=== PATIENT | male | born 1960 | race Caucasian/White ===

== ENCOUNTER → 2019-08-06 08:10 | Outpatient (CLI) | payer OTHER, SELFPAY ==
[2019-08-06 10:03] LABS: ALB/GLOB Ratio 1.1 RATIO (0.9-2.4); AST(SGOT) 17 U/L (15-37); Alanine Aminotransfer ALT/SGPT 24 U/L (16-61); Albumin, Serum 3.8 g/dL (3.2-5.0); Alkaline Phosphatase 52 U/L (45-117); Anion Gap 7 (5-15); BUN 20 mg/dL (7-18); BUN/Creat Ratio 19.6 RATIO (10-20); Calcium,Total 9.1 mg/dL (8.5-10.1); Chloride 104 mmol/L (98-107); Cholesterol 246 mg/dL (200); Creatinine, Serum 1.02 mg/dL (0.70-1.30); EST Glomerular Filtration Rate 79 mL/min (>60); Est Glom Filt Rate - Afr Amer 95 mL/min (>60); Globulin 3.6 g/dL (2.2-4.2); Glucose 87 mg/dL (74-106); High Density Lipoprotein 62 mg/dL; Potassium 4.4 mmol/L (3.5-5.1); Protein, Total 7.4 g/dL (6.4-8.2); Sodium Level 138 mmol/L (136-145); Triglycerides 144 mg/dL; Very Low Density Lipoprotein 29 mg/dL (5-40)
[2019-08-06 10:19] LABS: Microalbumin,Random Urine 14.8 mg/L (NO RANGE EST.); Microalbumin:Creatinine Ratio 11.1 mg/g CRE (<30 mg/g CRE)
== END ==
PROVIDERS: PCP Family Medicine; Visit Provider Family Medicine
DX: R03.0 Elevated blood-pressure reading, without diagnosis of hypertension (principal); E78.00 Pure hypercholesterolemia, unspecified
CPT/HCPCS: 36415; 80053; 80061; 82043; 82570

== ENCOUNTER → 2019-09-04 08:34 | Outpatient (CLI) | payer OTHER, SELFPAY ==
[2019-09-04 10:21] LABS: Cholesterol 165 mg/dL (200); High Density Lipoprotein 59 mg/dL; Triglycerides 115 mg/dL; Very Low Density Lipoprotein 23 mg/dL (5-40)
== END ==
PROVIDERS: PCP Family Medicine; Referring Provider Family Medicine; Visit Provider Family Medicine
DX: E78.00 Pure hypercholesterolemia, unspecified (principal)
CPT/HCPCS: 36415; 80061

== ENCOUNTER 2021-04-19 08:26 | Outpatient (CLI) | payer BC, SELFPAY ==
[2021-04-19 11:23] LABS: ALB/GLOB Ratio 0.8 RATIO (0.9-2.4); AST(SGOT) 23 U/L (15-37); Alanine Aminotransfer ALT/SGPT 25 U/L (16-61); Albumin, Serum 3.6 g/dL (3.2-5.0); Alkaline Phosphatase 56 U/L (45-117); Anion Gap 6 (5-15); BUN 19 mg/dL (7-18); BUN/Creat Ratio 17.3 RATIO (10-20); Calcium,Total 9.1 mg/dL (8.5-10.1); Chloride 104 mmol/L (98-107); Cholesterol 148 mg/dL (200); EST Glomerular Filtration Rate 72 mL/min (>60); Est Glom Filt Rate - Afr Amer 87 mL/min (>60); Globulin 4.4 g/dL (2.2-4.2); Glucose 87 mg/dL (74-106); High Density Lipoprotein 59 mg/dL; PSA,Total - Annual Screen 0.67 ng/mL (0.00-4.00); Potassium 4.2 mmol/L (3.5-5.1); Sodium Level 136 mmol/L (136-145); Triglycerides 93 mg/dL; Very Low Density Lipoprotein 19 mg/dL (5-40)
== END 2021-04-19 23:59 | disposition short-term general hospital (02) ==
LOC: MFPLAB 08:27
PROVIDERS: PCP Family Medicine; Referring Provider Family Medicine; Visit Provider Family Medicine
DX: Z00.00 Encounter for general adult medical examination without abnormal findings (principal); E78.00 Pure hypercholesterolemia, unspecified
CPT/HCPCS: 36415; 80053; 80061; 84153; G0103

== ENCOUNTER → 2022-12-05 | Outpatient (CLI) | payer BC, SELFPAY ==
[2022-12-05 10:24] LABS: Absolute Lymphocyte Count 1.48 X10^3/uL (0.83-4.51); Absolute Neutrophil Count 3.3 X10^3/uL (2.0-7.7); Basophil# 0.05 X10^3/uL; Basophil% 0.8 % (0-1); Eosinophil# 0.23 X10^3/uL; Eosinophils% 3.8 % (0-5); Hematocrit 42.7 % (40-54); Hemoglobin 12.8 g/dL (13.0-16.5); Lymphocyte # 1.48 X10^3/ul (0.83-4.51); Lymphocyte % 24.7 % (19-41); Mean Corpuscular Hgb 26.6 pg (27.0-32.0); Mean Corpuscular Volume 88.8 fL (80-94); Monocyte# 0.93 X10^3/uL; Monocyte% 15.5 % (0-10); NRBC Flagged by Analyzer 0 % (0-5); Neutrophil # 3.29 X10^3/uL (2.7-7.7); Neutrophil % 54.9 % (47-70); Platelet Count 314 K/mm3 (150-450); RBC Distribution Width CV 15.7 % (11.6-14.6); RBC Distribution Width SD 51.7 fl (35.1-43.9); Red Blood Count 4.81 M/mm3 (4.6-6.2)
[2022-12-05 11:05] LABS: ALB/GLOB Ratio 0.8 RATIO (0.9-2.4); AST(SGOT) 20 U/L (15-37); Alanine Aminotransfer ALT/SGPT 21 U/L (16-61); Albumin, Serum 3.4 g/dL (3.2-5.0); Alkaline Phosphatase 62 U/L (45-117); Anion Gap 5 (5-15); BUN 17 mg/dL (7-18); BUN/Creat Ratio 15.5 RATIO (10-20); Chloride 107 mmol/L (98-107); Cholesterol 169 mg/dL (200); EST Glomerular Filtration Rate 72 mL/min (>60); Est Glom Filt Rate - Afr Amer 87 mL/min (>60); Globulin 4.2 g/dL (2.2-4.2); Glucose 100 mg/dL (74-106); High Density Lipoprotein 61 mg/dL; Potassium 4.2 mmol/L (3.5-5.1); Protein, Total 7.6 g/dL (6.4-8.2); Sodium Level 137 mmol/L (136-145); Triglycerides 111 mg/dL; Very Low Density Lipoprotein 22 mg/dL (5-40)
[2022-12-06 17:52] LABS: Ferritin 10 ng/mL (26-388)
[2022-12-11 15:08] LABS: PROEL- A/G Ratio 1.1 (0.7-1.7); PROEL- Albumin 3.7 g/dL (2.9-4.4); PROEL- Alpha-1 Globulin 0.2 g/dL (0.0-0.4); PROEL- Alpha-2 Globulin 0.7 g/dL (0.4-1.0); PROEL- Beta Globulin 1.2 g/dL (0.7-1.3); PROEL- Gamma Globulin 1.3 g/dL (0.4-1.8); PROEL- Globulin, Total 3.4 g/dL (2.2-3.9); PROEL- TOTAL PROTEIN 7.1 g/dL (6.0-8.5)
== END | disposition home or self-care (01) ==
LOC: MFPLAB 08:34
PROVIDERS: PCP Family Medicine; Visit Provider Family Medicine
DX: Z00.00 Encounter for general adult medical examination without abnormal findings (principal); E66.9 Obesity, unspecified; E78.00 Pure hypercholesterolemia, unspecified; D64.9 Anemia, unspecified; Z68.35 Body mass index [BMI] 35.0-35.9, adult
CPT/HCPCS: 36415; 80053; 80061; 82728; 84165; 85025

== ENCOUNTER → 2024-03-13 | Outpatient (CLI) | payer BC, SELFPAY ==
[2024-03-13 10:01] LABS: Absolute Lymphocyte Count 0.99 X10^3/uL (0.83-4.51); Absolute Neutrophil Count 3.9 X10^3/uL (2.0-7.7); Basophil# 0.05 X10^3/uL; Basophil% 0.8 % (0-1); Eosinophil# 0.21 X10^3/uL; Eosinophils% 3.5 % (0-5); Hematocrit 41.4 % (40-54); Hemoglobin 13.5 g/dL (13.0-16.5); Lymphocyte # 0.99 X10^3/ul (0.83-4.51); Lymphocyte % 16.4 % (19-41); Mean Corp Hgb Conc 32.6 g/dL (32-36); Monocyte# 0.89 X10^3/uL; Monocyte% 14.8 % (0-10); NRBC Flagged by Analyzer 0 % (0-5); Neutrophil # 3.88 X10^3/uL (2.7-7.7); Neutrophil % 64.3 % (47-70); Platelet Count 257 K/mm3 (150-450); RBC Distribution Width CV 14.5 % (11.6-14.6); RBC Distribution Width SD 47.1 fl (35.1-43.9); Red Blood Count 4.65 M/mm3 (4.6-6.2)
[2024-03-13 10:40] LABS: ALB/GLOB Ratio 0.9 RATIO (0.9-2.4); AST(SGOT) 21 U/L (15-37); Alanine Aminotransfer ALT/SGPT 17 U/L (16-61); Albumin, Serum 3.5 g/dL (3.2-5.0); Alkaline Phosphatase 56 U/L (45-117); Anion Gap 7 (5-15); BUN 18 mg/dL (7-18); BUN/Creat Ratio 16.4 RATIO (10-20); Calcium,Total 8.7 mg/dL (8.5-10.1); Chloride 106 mmol/L (98-107); Cholesterol 155 mg/dL (200); EST Glomerular Filtration Rate 71 mL/min (>60); Est Glom Filt Rate - Afr Amer 86 mL/min (>60); Ferritin 27 ng/mL (26-388); Glucose 95 mg/dL (74-106); High Density Lipoprotein 67 mg/dL; Iron 55 ug/dL (65-175); Iron Binding Capacity,Total 355 ug/dL (250-450); PERCENT IRON SATURATION 15.5 % (15.0-55.0); PSA,Total - Annual Screen 0.72 ng/mL (0.00-4.00); Potassium 4.2 mmol/L (3.5-5.1); Protein, Total 7.5 g/dL (6.4-8.2); Sodium Level 138 mmol/L (136-145); Triglycerides 107 mg/dL; Very Low Density Lipoprotein 21 mg/dL (5-40)
[2024-03-13 12:25] LABS: Hemoglobin A1c 5.6 % (3.8-5.6)
== END | disposition home or self-care (01) ==
LOC: MTLAB 07:16
PROVIDERS: PCP Family Medicine; Referring Provider Family Medicine; Visit Provider Family Medicine
DX: D64.9 Anemia, unspecified (principal); E66.812 Obesity, class 2; Z68.35 Body mass index [BMI] 35.0-35.9, adult; Z12.5 Encounter for screening for malignant neoplasm of prostate
CPT/HCPCS: 36415; 80053; 80061; 82728; 83036; 83540; 83550; 84153; 85025; G0103

== ENCOUNTER → 2024-05-08 | Outpatient (CLI) | payer BC, SELFPAY ==
[2024-05-08 11:13] LABS: Absolute Lymphocyte Count 1.43 X10^3/uL (0.83-4.51); Absolute Neutrophil Count 4.7 X10^3/uL (2.0-7.7); Basophil# 0.05 X10^3/uL; Basophil% 0.7 % (0-1); Eosinophil# 0.18 X10^3/uL; Eosinophils% 2.5 % (0-5); Hematocrit 43.4 % (40-54); Hemoglobin 14.4 g/dL (13.0-16.5); Lymphocyte # 1.43 X10^3/ul (0.83-4.51); Lymphocyte % 20.2 % (19-41); Mean Corp Hgb Conc 33.2 g/dL (32-36); Mean Corpuscular Hgb 29.2 pg (27.0-32.0); Monocyte# 0.71 X10^3/uL; NRBC Flagged by Analyzer 0 % (0-5); Neutrophil # 4.69 X10^3/uL (2.7-7.7); Neutrophil % 66.3 % (47-70); Platelet Count 266 K/mm3 (150-450); RBC Distribution Width SD 44.7 fl (35.1-43.9); Red Blood Count 4.93 M/mm3 (4.6-6.2); White Blood Count 7.1 K/mm3 (4.4-11.0)
[2024-05-08 11:33] LABS: Ferritin 25 ng/mL (26-388)
== END | disposition home or self-care (01) ==
LOC: MFPLAB 09:33
PROVIDERS: PCP Family Medicine; Referring Provider Family Medicine; Visit Provider Family Medicine
DX: D64.9 Anemia, unspecified (principal)
CPT/HCPCS: 36415; 82728; 85025

== ENCOUNTER → 2024-11-03 | Outpatient (CLI) | payer BC, SELFPAY ==
[2024-11-03 14:47] LABS: AST(SGOT) 23 U/L (<=37); Alanine Aminotransfer ALT/SGPT 17 U/L (<=46); Albumin, Serum 4.2 g/dL (3.4-4.8); Alkaline Phosphatase 52 U/L (40-129); Anion Gap 12 (5-15); BUN 22 mg/dL (4-19); BUN/Creat Ratio 21.2 RATIO (10-20); Calcium,Total 9.5 mg/dL (7.6-11.0); Carbon Dioxide 23.3 mmol/L (21.0-32.0); Chloride 103 mmol/L (98-108); Ferritin 70 ng/mL (37-417); Globulin 3.2 g/dL (2.2-4.2); Glucose 74 mg/dL (70-99); Potassium 4.3 mmol/L (3.3-5.1); Vitamin B12 569 pg/mL (180-914)
[2024-11-03 15:15] LABS: FOLATES,SERUM (FOLIC ACID) 23.00 ng/mL (4.60-34.80)
--- OUTSIDE RECORDS SUMMARY | 2024-11-03 17:35 | XMS RPT_ITS | CCD ---
Author Organization [facility] ion Partnership [facility] Care Team Providers Care Merchandising Execution Associate Name Role Phone Omari Mckinley Referring Unavailable Omari Mckinley Attending Unavailable Omari Mckinley Primary Care Unavailable Omari Mckinley Referring Unavailable Omari Mckinley Attending Unavailable Omari Mckinley Primary Care Unavailable Problems Problem Classification Problem Date Documented Da te Episodic/Chronic Deficiency and other anemia (1 source) Anemia, unspecified; Translations: [Anemia, unspecified] Onset: 05-27-2024 Episodic Results Test Name Value Interpretation Reference Range Facility CBC W/Diff, Automatedon 04-10 Absolute Lymph 1.43 X10 3/uL Normal 0.83-4.51 [facility] Comment on above: Order Comment: Order Date: 05/08/24 Order Info: 0184- - CBCD Performed By: #### L 278.6597, L100.0100 #### [facility] [address] [place], [address] Absolute Neut 4.7 X10 3/uL Normal 2.0-7.7 [facility] Comment on above: Order Comment: Order Date: 05/08/24 Order Info: 0184-1 - CBCD Performed By: #### L 5036550, L100.0100 #### [facility] [address] [place], [address] Basophils/100 WBC (Bld) 0.7 % Normal 0-1 [facility] Comment on above: Order Comment: Order Date: 05/08/24 Order Info: 0184-1 - CBCD Performed By: #### L 503.6550, L100.0100 #### [facility] [address] [place], [address] Eosinophils/100 WBC (Bld) 2.5 % Normal 0-5 [facility] Comment on above: Order Comment: Order Date: 05/08/24 Order Info: 0184-1 - CBCD Performed By: #### L 503.6550, L100.0100 #### [facility] [address] [place], [address] Erythrocyte distribution width (RBC) [Ratio] 14.0 % Normal 11.6-14.6 [facility] Comment on above: Order Comment: Order Date: 05/08/24 Order Info: 018- - CBCD Performed By: #### L 503.6550, L100.0100 #### [facility] [address] [place], [address] Hematocrit (Bld) [Volume fraction] 43.4 % Normal 40-54 [facility] Comment on above: Order Comment: Order Date: 05/08/24 Order Info: 018- - CBCD Performed By: #### L 503.6550, L100.0100 #### [facility] [address] [place], [address] Hemoglobin (Bld) [Mass/Vol] 14.4 g/dL Normal 13.0-16.5 [facility] Comment on above: Order Comment: Order Date: 05/08/24 Order Info: 0184- - CBCD Performed By: #### L 503.6550, L100.0100 #### [facility] [address] [place], [address] IG% 0.300 Normal 0.0-0.9 [facility] Comment on above: Order Comment: Order Date: 05/08/24 Order Info: 0184-1 - CBCD Result Comment: IG% - Immature Granulocytes (promyelocytes, myelocytes and metamyelocytes) > 1% indicates that a LEFT SHIFT is Present. Performed By: #### L 503.6550, L100.0100 #### [facility] [address] [place], [address] Lymphocytes/100 WBC (Bld) 20.2 % Normal 19-41 [facility] Comment on above: Order Comment: Order Date: 05/08/24 Order Info: 0184-1 - CBCD Performed By: #### L 503.6550, L100.0100 #### [facility] [address] [place], [address] MCH (RBC) [Entitic mass] 29.2 pg Normal 27.0-32.0 [facility] Comment on above: Order Comment: Order Date: 05/08/24 Order Info: 0184-1 - CBCD Performed By: #### L 503.6550, L100.0100 #### [facility] [address] [place], [address] MCHC (RBC) [Mass/Vol] 33.2 g/dL Normal 32-36 [facility] Comment on above: Order Comment: Order Date: 05/08/24 Order Info: 0184-1 - CBCD Performed By: #### L 503.6550, L100.0100 #### [facility] [address] [place], [address] MCV (RBC) [Entitic vol] 88.0 fL Normal 80-94 [facility] Comment on above: Order Comment: Order Date: 05/08/24 Order Info: 0184-1 - CBCD Performed By: #### L 503.6550, L100.0100 #### [facility] [address] [place], [address] Monocytes/100 WBC (Bld) 10.0 % Normal 0-10 [facility] Comment on above: Order Comment: Order Date: 05/08/24 Order Info: 0184-1 - CBCD Performed By: #### L 503.6550, L100.0100 #### [facility] [address] [place], [address] Neutrophils/100 WBC (Bld) 66.3 % Normal 47-70 [facility] Comment on above: Order Comment: Order Date: 05/08/24 Order Info: 0184-1 - CBCD Performed By: #### L 503.6550, L100.0100 #### [facility] [address] [place], [address] Nucleated RBC (Bld) [#/Vol] 0 10*3/uL Normal 0-5 [facility] Comment on above: Order Comment: Order Date: 05/08/24 Order Info: 018-1 - CBCD Performed By: #### L 503.6550, L100.0100 #### [facility] [address] [place], [address] Platelet mean volume (Bld) [Entitic vol] 13.0 fL High 6.2-12.0 [facility] Comment on above: Order Comment: Order Date: 05/08/24 Order Info: 018-1 - CBCD Performed By: #### L 503.6550, L100.0100 #### [facility] [address] [place], [address] Platelets (Bld) [#/Vol] 266 10*3/uL Normal 150-450 [facility] Comment on above: Order Comment: Order Date: 05/08/24 Order Info: 0184-1 - CBCD Performed By: #### L 503.6550, L100.0100 #### [facility] [address] [place], [address] RBC (Bld) [#/Vol] 4.93 10*6/uL Normal 4.6-6.2 [facility] Comment on above: Order Comment: Order Date: 05/08/24 Order Info: 0184-1 - CBCD Performed By: #### L 503.6550, L100.0100 #### [facility] [address] [place], [address] RDW SD 44.7 fl High 35.1-43.9 [facility] Comment on above: Order Comment: Order Date: 05/08/24 Order Info: 0184-1 - CBCD Performed By: #### L 503.6550, L100.0100 #### [facility] [address] [place], [address] WBC (Bld) [#/Vol] 7.1 10*3/uL Normal 4.4-11.0 [facility] Comment on above: Order Comment: Order Date: 05/08/24 Order Info: 018- - CBCD Performed By: #### L 503.6550, L100.0100 #### [facility] [address] [place], [address] Ferritinon 05-08-2024 Ferritin [Mass/Vol] 25 ng/mL Low 26-388 [facility] Comment on above: Order Comment: Order Date: 05/08/24 Order Info: 2276-4 - WILDA Performed By: #### L 503.6550, L100.0100 #### [facility] [address] [place], [address] CBC W/Diff, Automatedon 12-0 Absolute Lymph 0.99 X10 3/uL Normal 0.83-4.51 [facility] Comment on above: Order Comment: Order Date: 03/10/24 Order Info: 0184- - CBCD Performed By: #### L 100.0100, L503.6030, L503.6550, L500.4050 #### [facility] [address] [place], [address] Absolute Neut 3.9 X10 3/uL Normal 2.0-7.7 [facility] Comment on above: Order Comment: Order Date: 03/10/24 Order Info: 0184- - CBCD Performed By: #### L 100.0100, L503.6030, L503.6550, L500.4050 #### [facility] [address] [place], [address] Basophils/100 WBC (Bld) 0.8 % Normal 0-1 [facility] Comment on above: Order Comment: Order Date: 03/10/24 Order Info: 0184-1 - CBCD Performed By: #### L 100.0100, L503.6030, L503.6550, L500.4050 #### [facility] [address] [place], [address] Eosinophils/100 WBC (Bld) 3.5 % Normal 0-5 [facility] Comment on above: Order Comment: Order Date: 03/10/24 Order Info: 018- - CBCD Performed By: #### L 100.0100, L503.6030, L503.6550, L500.4050 #### [facility] [address] [place], [address] Erythrocyte distribution width (RBC) [Ratio] 14.5 % Normal 11.6-14.6 [facility] Comment on above: Order Comment: Order Date: 03/10/24 Order Info: 018- - CBCD Performed By: #### L 100.0100, L503.6030, L503.6550, L500.4050 #### [facility] [address] [place], [address] Hematocrit (Bld) [Volume fraction] 41.4 % Normal 40-54 [facility] Comment on above: Order Comment: Order Date: 03/10/24 Order Info: 018-1 - CBCD Performed By: #### L 100.0100, L503.6030, L503.6550, L500.4050 #### [facility] [address] [place], [address] Hemoglobin (Bld) [Mass/Vol] 13.5 g/dL Normal 13.0-16.5 [facility] Comment on above: Order Comment: Order Date: 03/10/24 Order Info: 0184-1 - CBCD Performed By: #### L 100.0100, L503.6030, L503.6550, L500.4050 #### [facility] [address] [place], [address] IG% 0.200 Normal 0.0-0.9 [facility] Comment on above: Order Comment: Order Date: 03/10/24 Order Info: 0184-1 - CBCD Result Comment: IG% - Immature Granulocytes (promyelocytes, myelocytes and metamyelocytes) > 1% indicates that a LEFT SHIFT is Present. Performed By: #### L 100.0100, L503.6030, L503.6550, L500.4050 #### [facility] [address] [place], [address] Lymphocytes/100 WBC (Bld) 16.4 % Low 19-41 [facility] Comment on above: Order Comment: Order Date: 03/10/24 Order Info: 0184- - CBCD Performed By: #### L 100.0100, L503.6030, L503.6550, L500.4050 #### [facility] [address] [place], [address] MCH (RBC) [Entitic mass] 29.0 pg Normal 27.0-32.0 [facility] Comment on above: Order Comment: Order Date: 03/10/24 Order Info: 0184- - CBCD Performed By: #### L 100.0100, L503.6030, L503.6550, L500.4050 #### [facility] [address] [place], [address] MCHC (RBC) [Mass/Vol] 32.6 g/dL Normal 32-36 [facility] Comment on above: Order Comment: Order Date: 03/10/24 Order Info: 0184-1 - CBCD Performed By: #### L 100.0100, L503.6030, L503.6550, L500.4050 #### [facility] [address] [place], [address] MCV (RBC) [Entitic vol] 89.0 fL Normal 80-94 [facility] Comment on above: Order Comment: Order Date: 03/10/24 Order Info: 0184-1 - CBCD Performed By: #### L 100.0100, L503.6030, L503.6550, L500.4050 #### [facility] [address] [place], [address] Monocytes/100 WBC (Bld) 14.8 % High 0-10 [facility] Comment on above: Order Comment: Order Date: 03/10/24 Order Info: 018- - CBCD Performed By: #### L 100.0100, L503.6030, L503.6550, L500.4050 #### [facility] [address] [place], [address] Neutrophils/100 WBC (Bld) 64.3 % Normal 47-70 [facility] Comment on above: Order Comment: Order Date: 03/10/24 Order Info: 0184-1 - CBCD Performed By: #### L 100.0100, L503.6030, L503.6550, L500.4050 #### [facility] [address] [place], [address] Nucleated RBC (Bld) [#/Vol] 0 10*3/uL Normal 0-5 [facility] Comment on above: Order Comment: Order Date: 03/10/24 Order Info: 0184-1 - CBCD Performed By: #### L 100.0100, L503.6030, L503.6550, L500.4050 #### [facility] [address] [place], [address] Platelet mean volume (Bld) [Entitic vol] 13.0 fL High 6.2-12.0 [facility] Comment on above: Order Comment: Order Date: 03/10/24 Order Info: 0184-1 - CBCD Performed By: #### L 100.0100, L503.6030, L503.6550, L500.4050 #### [facility] [address] [place], [address] Platelets (Bld) [#/Vol] 257 10*3/uL Normal 150-450 [facility] Comment on above: Order Comment: Order Date: 03/10/24 Order Info: 0184-1 - CBCD Performed By: #### L 100.0100, L503.6030, L503.6550, L500.4050 #### [facility] [address] [place], [address] RBC (Bld) [#/Vol] 4.65 10*6/uL Normal 4.6-6.2 [facility] Comment on above: Order Comment: Order Date: 03/10/24 Order Info: 0184-1 - CBCD Performed By: #### L 100.0100, L503.6030, L503.6550, L500.4050 #### [facility] [address] [place], [address] RDW SD 47.1 fl High 35.1-43.9 [facility] Comment on above: Order Comment: Order Date: 03/10/24 Order Info: 0184-1 - CBCD Performed By: #### L 100.0100, L503.6030, L503.6550, L500.4050 #### [facility] [address] [place], [address] WBC (Bld) [#/Vol] 6.0 10*3/uL Normal 4.4-11.0 [facility] Comment on above: Order Comment: Order Date: 03/10/24 Order Info: 0184-1 - CBCD Performed By: #### L 100.0100, L503.6030, L503.6550, L500.4050 #### [facility] [address] [place], [address] Comprehensive Metabolic Prof ilon 03-13-2024 Albumin [Mass/Vol] 3.5 g/dL Normal 3.2-5.0 [facility] Comment on above: Order Comment: Order Date: 03/10/24 Order Info: 86-1 - CMP Order Info: 71162-5 - LIPID Order Info: 2856-04 - PSA Order Info: - IBC Order Info: 2497-07 - FE Order Info: 4 - WILDA Performed By: #### L 100.0100, L503.6030, L503.6550, L500.4050 #### [facility] [address] [place], [address] Albumin/Globulin [Mass ratio] 0.9 {ratio} Normal 0.9-2.4 [facility] Comment on above: Order Comment: Order Date: 03/10/24 Order Info: 785-04 - CMP Order Info: - LIPID Order Info: 2856-04 - PSA Order Info: - IBC Order Info: 2497-07 - FE Order Info: 4 - WILDA Performed By: #### L 100.0100, L503.6030, L503.6550, L500.4050 #### [facility] [address] [place], [address] ALK P 56 U/L Normal 45-117 [facility] Comment on above: Order Comment: Order Date: 03/10/24 Order Info: 785-04 - CMP Order Info: - LIPID Order Info: 2856-04 - PSA Order Info: - IBC Order Info: 2494 - FE Order Info: [id number] - WIDLA Performed By: #### L 100.0100, L503.6030, L503.6550, L500.4050 #### [facility] [address] [place], [address] ALT [Catalytic activity/Vol] 17 U/L Normal 16-61 [facility] Comment on above: Order Comment: Order Date: 03/10/24 Order Info: 86-1 - CMP Order Info: [id number] - LIPID Order Info: 2856-04 - PSA Order Info: [id number] - IBC Order Info: 2497-07 - FE Order Info: 2275-07 - WILDA Performed By: #### L 100.0100, L503.6030, L503.6550, L500.4050 #### [facility] [address] [place], [address] AST [Catalytic activity/Vol] 21 U/L Normal 15-37 [facility] Comment on above: Order Comment: Order Date: 03/10/24 Order Info: 785- - CMP Order Info: - LIPID Order Info: 2856-04 - PSA Order Info: [id number] - IBC Order Info: 2497-07 - FE Order Info: 2275-07 - WILDA Performed By: #### L 100.0100, L503.6030, L503.6550, L500.4050 #### [facility] [address] [place], [address] Bilirubin [Mass/Vol] 0.50 mg/dL Normal 0.20-1.00 [facility] Comment on above: Order Comment: Order Date: 03/10/24 Order Info: 785- - CMP Order Info: - LIPID Order Info: 2856-04 - PSA Order Info: [id number] - IBC Order Info: 24911-09 - FE Order Info: 2275-07 - WILDA Result Comment: For patients on eltrombopag therapy, use of Dimension [place] TBIL is not recommended. Performed By: #### L 100.0100, L503.6030, L503.6550, L500.4050 #### [facility] [address] [place], [address] BUN/CRE 16.4 RATIO Normal 10-20 [facility] Comment on above: Order Comment: Order Date: 03/10/24 Order Info: 785- - CMP Order Info: - LIPID Order Info: 2856-04 - PSA Order Info: [id number] - IBC Order Info: 2497-07 - FE Order Info: 4 - WILDA Performed By: #### L 100.0100, L503.6030, L503.6550, L500.4050 #### [facility] [address] [place], [address] CA,Total 8.7 mg/dL Normal 8.5-10.1 [facility] Comment on above: Order Comment: Order Date: 03/10/24 Order Info: 785- - CMP Order Info: - LIPID Order Info: 2856-04 - PSA Order Info: [id number] - IBC Order Info: 2497-07 - FE Order Info: 2275-07 - WILDA Performed By: #### L 100.0100, L503.6030, L503.6550, L500.4050 #### [facility] [address] [place], [address] Chloride [Moles/Vol] 106 mmol/L Normal 98-107 [facility] Comment on above: Order Comment: Order Date: 03/10/24 Order Info: 785-04 - CMP Order Info: - LIPID Order Info: 2856-04 - PSA Order Info: [id number] - IBC Order Info: 2497-07 - FE Order Info: 4 - WILDA Performed By: #### L 100.0100, L503.6030, L503.6550, L500.4050 #### [facility] [address] [place], [address] CO2 [Moles/Vol] 26.0 mmol/L Normal 21.0-32.0 [facility] Comment on above: Order Comment: Order Date: 03/10/24 Order Info: 785-1 - CMP Order Info: - LIPID Order Info: 2856-04 - PSA Order Info: - IBC Order Info: 2497-07 FE Order Info: 2275-07 WILDA Performed By: #### L 100.0100, L503.6030, L503.6550, L500.4050 #### [facility] [address] [place], [address] Creatinine [Mass/Vol] 1.10 mg/dL Normal 0.70-1.30 [facility] Comment on above: Order Comment: Order Date: 03/10/24 Order Info: 785-04 - CMP Order Info: - LIPID Order Info: 2856-04 - PSA Order Info: - IBC Order Info: 2497-07 FE Order Info: 2275-07 - WILDA Result Comment: The validity of the calculated GFR GFRAA in patients over 70 years has not been determined. Clinical correlation is essential. Performed By: #### L 100.0100, L503.6030, L503.6550, L500.4050 #### [facility] [address] [place], [address] EST GFR - AA 86 mL/min Normal >60 [facility] Comment on above: Order Comment: Order Date: 03/10/24 Order Info: 785-04 - CMP Order Info: - LIPID Order Info: 2856-04 - PSA Order Info: - IBC Order Info: 2497-07 FE Order Info: 2275-07 - WILDA Result Comment: Afri can [place] GFR Calc Performed By: #### L 100.0100, L503.6030, L503.6550, L500.4050 #### [facility] [address] [place], [address] GAP 7 Normal 5-15 [facility] Comment on above: Order Comment: Order Date: 03/10/24 Order Info: 785-04 - CMP Order Info: - LIPID Order Info: 2856-04 - PSA Order Info: - IBC Order Info: 2497-07 Order Info: 2275-07 - WILDA Performed By: #### L 100.0100, L503.6030, L503.6550, L500.4050 #### [facility] [address] [place], [address] GFR/1.73 sq M.predicted among non-blacks MDRD (S/P/Bld) [Vol rate/Area] 71 mL/min/{1.73_m2} Normal >60 [facility] Comment on above: Order Comment: Order Date: 03/10/24 Order Info: 785- - CMP Order Info: - LIPID Order Info: 2856-04 - PSA Order Info: [id number] - IBC Order Info: 2497-07 FE Order Info: 2275-07 - WILDA Result Comment: Non- GFR Calc Performed By: #### L 100.0100, L503.6030, L503.6550, L500.4050 #### [facility] [address] [place], [address] Globulin (S) [Mass/Vol] 4.0 g/dL Normal 2.2-4.2 [facility] Comment on above: Order Comment: Order Date: 03/10/24 Order Info: 785-04 - CMP Order Info: - LIPID Order Info: 2856-04 - PSA Order Info: 43486-1 - IBC Order Info: 2497-07 FE Order Info: 2275-07 - WILDA Performed By: #### L 100.0100, L503.6030, L503.6550, L500.4050 #### [facility] [address] [place], [address] Glucose [Mass/Vol] 95 mg/dL Normal 74-106 [facility] Comment on above: Order Comment: Order Date: 03/10/24 Order Info: 0786-1 - CMP Order Info: 63095-0 - LIPID Order Info: 2856-04 - PSA Order Info: 11021-2 - IBC Order Info: 2498-4 - FE Order Info: 2275-07 - WILDA Performed By: #### L 100.0100, L503.6030, L503.6550, L500.4050 #### [facility] [address] [place], [address] Potassium [Moles/Vol] 4.2 mmol/L Normal 3.5-5.1 [facility] Comment on above: Order Comment: Order Date: 03/10/24 Order Info: 86-1 - CMP Order Info: 36570-7 - LIPID Order Info: 1 - PSA Order Info: - IBC Order Info: 2497-07 - FE Order Info: 2275-07 - WILDA Performed By: #### L 100.0100, L503.6030, L503.6550, L500.4050 #### [facility] [address] [place], [place], [address] Sodium [Moles/Vol] 138 mmol/L Normal 136-145 [facility] Comment on above: Order Comment: Order Date: 03/10/24 Order Info: 785-04 - CMP Order Info: [id number] - LIPID Order Info: 2856-04 - PSA Order Info: - IBC Order Info: 2497-07 FE Order Info: 2275-07 - WILDA Performed By: #### L 100.0100, L503.6030, L503.6550, L500.4050 #### [facility] [address] [place], [address] T PROT 7.5 g/dL Normal 6.4-8.2 [facility] Comment on above: Order Comment: Order Date: 03/10/24 Order Info: 86-1 - CMP Order Info: 12485-2 - LIPID Order Info: 2857-1 - PSA Order Info: 62744-9 - IBC Order Info: 2497-07 - FE Order Info: 4 - WILDA Performed By: #### L 100.0100, L503.6030, L503.6550, L500.4050 #### [facility] [address] [place], [address] Urea nitrogen [Mass/Vol] 18 mg/dL Normal 7-18 [facility] Comment on above: Order Comment: Order Date: 03/10/24 Order Info: 0786-1 - CMP Order Info: 37907-7 - LIPID Order Info: 2857-1 - PSA Order Info: 19526-1 - IBC Order Info: 2498-4 - FE Order Info: 4 - WILDA Performed By: #### L 100.0100, L503.6030, L503.6550, L500.4050 #### [facility] [address] [place], [address] Ferritinon 03-13-2024 Ferritin [Mass/Vol] 27 ng/mL Normal 26-388 [facility] Comment on above: Order Comment: Order Date: 03/10/24 Order Info: 0786-1 - CMP Order Info: 84721-6 - LIPID Order Info: 2856-04 - PSA Order Info: [id number] - IBC Order Info: 2498-4 - FE Order Info: 4 - WILDA Performed By: #### L 100.0100, L503.6030, L503.6550, L500.4050 #### [facility] [address] [place], [address] Hemoglobin A1con 03-13-2024 HbA1c (Bld) [Mass fraction] 5.6 % Normal 3.8-5.6 [facility] Comment on above: Order Comment: Order Date: 03/10/24 Order Info: 4548-4 - A1C Result Comment: Norm al < 5.7 % Prediabetic 5.7 - 6.4 % Diabetic >or= 6.5 % Please note range changes. Performed By: #### L 501.9985 #### [facility] [address] [place], [address] Iron+Iron Binding Capacityon 03-13-2024 Iron [Mass/Vol] 55 ug/dL Low 65-175 [facility] Comment on above: Order Comment: Order Date: 03/10/24 Order Info: 785- - CMP Order Info: - LIPID Order Info: 2856-04 - PSA Order Info: 64626-9 - IBC Order Info: [id number] - FE Order Info: 2275-4 - WILDA Performed By: #### L 100.0100, L503.6030, L503.6550, L500.4050 #### [facility] [address] [place], [address] IRON SATURATION 15.5 Normal 15.0-55.0 [facility] Comment on above: Order Comment: Order Date: 03/10/24 Order Info: 785- - CMP Order Info: [id number] - LIPID Order Info: 2856-04 - PSA Order Info: 47733-1 - IBC Order Info: 2494 - FE Order Info: 4 - WILDA Performed By: #### L 100.0100, L503.6030, L503.6550, L500.4050 #### [facility] [address] [place], [address] TIBC 355 ug/dL Normal 250-450 [facility] Comment on above: Order Comment: Order Date: 03/10/24 Order Info: 785- - CMP Order Info: - LIPID Order Info: 2856-04 - PSA Order Info: 72727-8 - IBC Order Info: 4 - FE Order Info: 4 - WILDA Performed By: #### L 100.0100, L503.6030, L503.6550, L500.4050 #### [facility] [address] [place], [address] Lipid Profileon 03-13-2024 Cholesterol [Mass/Vol] 155 mg/dL Normal 200 [facility] Comment on above: Order Comment: Order Date: 03/10/24 Order Info: 785- - CMP Order Info: - LIPID Order Info: 2856-04 - PSA Order Info: [id number] - IBC Order Info: 2497-07 FE Order Info: 2275-07 - WILDA Result Comment: <200 mg/dL Desirable 200-240 mg/dL Borderline >240 mg/dL High Risk Performed By: #### L 500.4100 #### [facility] [address] [place], [address] Cholesterol in HDL [Mass/Vol] 67 mg/dL Normal [facility] Comment on above: Order Comment: Order Date: 03/10/24 Order Info: 785-04 - CMP Order Info: - LIPID Order Info: 2856-04 - PSA Order Info: - IBC Order Info: 2497-07 Order Info: 2275-07 - WILDA Result Comment: The drugs N-Acetylcysteine and Metamizole may falsely depress this assay. Reference Range HDL <40 mg/dL Low HDL Cholesterol HDL >or= 60 mg/dL High HDL Cholesterol Performed By: #### L 500.4100 #### [facility] [address] [place], [address] Cholesterol in LDL [Mass/Vol] 67 mg/dL Normal 0-130 [facility] Comment on above: Order Comment: Order Date: 03/10/24 Order Info: [id number] - CMP Order Info: - LIPID Order Info: [id number] - PSA Order Info: - IBC Order Info: [id number] - FE Order Info: [id number] - WILDA Performed By: #### L 500.4100 #### [facility] [address] [place], [address] Cholesterol in VLDL [Mass/Vol] 21 mg/dL Normal 5-40 [facility] Comment on above: Order Comment: Order Date: 03/10/24 Order Info: [id number] - CMP Order Info: - LIPID Order Info: [id number] - PSA Order Info: - IBC Order Info: [id number] - FE Order Info: [id number] - WILDA Performed By: #### L 500.4100 #### [facility] [address] [place], [place], [address] Triglyceride [Mass/Vol] 107 mg/dL Normal [facility] Comment on above: Order Comment: Order Date: 03/10/24 Order Info: [id number] - CMP Order Info: [id number] - LIPID Order Info: [id number] - PSA Order Info: [id number] - IBC Order Info: [id number] - FE Order Info: [id number] - WILDA Result Comment: The drugs N-Acetylcysteine and Metamizole may falsely depress this assay. Serum Triglycerides Reference Interval Normal <150 mg/dL Borderline high 150 - 199 mg/dL High 200 - 499 mg/dL Very High > or = 500 mg/dL Performed By: #### L 500.4100 #### [facility] [address] [place], [place], [address] PSA,Total - Annual Screenon 03-13-2024 PSA,TOT SCREEN 0.72 ng/mL Normal 0.00-4.00 [facility] Comment on above: Order Comment: Order Date: 03/10/24 Order Info: [id number] - CMP Order Info: [id number] - LIPID Order Info: [id number] - PSA Order Info: [id number] - IBC Order Info: [id number] Order Info: [id number] - WILDA Result Comment: This test was performed using the TPSA assay method for the [employer] chemistry system. Values obtained with different assay methods cannot be used interchangably. When changing PSA assays in the course of monitoring a patient, additional sequential testing should be carried out to confirm baseline values. Performed By: #### L 501.9910 #### [facility] [address] [place], [place], [address] Absolute lymphocyte countOrd ered By: Omari Mckinley on 12-05-2022 Lymphocytes Auto (Unsp spec) [#/Vol] 1.48 10*3/uL 0.83-4.51 [facility] Basophil percentageOrdered B y: Omari Mckinley on 12-05-2022 Basophils/100 WBC (Bld) 0.8 % 0-1 [facility] Bilirubin [Mass/Vol] 0.40 mg/dL 0.20-1.00 [facility] Comment on above: For patients on eltr ombopag therapy, use of Dimension [place] TBIL is not recommended. Chloride [Moles/Vol] 107 mmol/L 98-107 [facility] Cholesterol [Mass/Vol] 169 mg/dL <200 [facility] Comment on above: <200 mg/dL Desirable 200-240 mg/dL Borderline >240 mg/dL High Risk Eosinophils/100 WBC (Bld) 3.8 % 0-5 [facility] Glucose [Mass/Vol] 100 mg/dL 74-106 [facility] Comment on above: Fasting Glucose resu lt from 100 to 125 mg/dL suggests IMPAIRED HOMEOSTASIS per A.D.A. criteria. Neutrophils (Bld) [#/Vol] 3.3 10*3/uL 2.0-7.7 [facility] Neutrophils/100 WBC (Bld) 54.9 % 47-70 [facility] Potassium [Moles/Vol] 4.2 mmol/L 3.5-5.1 [facility] Protein [Mass/Vol] 7.6 g/dL 6.4-8.2 [facility] Sodium [Moles/Vol] 137 mmol/L 136-145 [facility] Triglyceride [Mass/Vol] 111 mg/dL <199 [facility] Comment on above: The drugs N-Acetylcy steine and Metamizole may falsely depress this assay.Serum Triglycerides Reference Interval Normal <150 mg/dL Borderline high 150 - 199 mg/dL High 200 - 499 mg/dL Very High > or = 500 mg/dL WBC (Bld) [#/Vol] 6.0 10*3/uL 4.4-11.0 [facility] Blood erythrocytes count (nu mber/volume)Ordered By: Omari Mckinley on 12-05-2022 RBC (Bld) [#/Vol] 4.81 10*6/uL 4.6-6.2 [facility] Blood hemoglobin measurement (mass/volume)Ordered By: Omari Mckinley on 12-05-2022 Hemoglobin (Bld) [Mass/Vol] 12.8 g/dL 13.0-16.5 [facility] Blood lymphocytes/100 leukoc ytesOrdered By: Omari Mckinley on 12-05-2022 Lymphocytes/100 WBC (Bld) 24.7 % 19-41 [facility] Blood monocytes/100 leukocyt esOrdered By: Omari Mckinley on 12-05-2022 Monocytes/100 WBC (Bld) 15.5 % 0-10 [facility] Blood platelet mean volumeOr dered By: Omari Mckinley on 12-05-2022 Platelet mean volume (Bld) [Entitic vol] 13.0 fL 6.2-12.0 [facility] Determination of erythrocyte mean corpuscular volume (MCV)Ordered By: Omari Mckinley on 12-05-2022 MCV (RBC) [Entitic vol] 88.8 fL 80-94 [facility] Hematocrit Auto (Bld) [Volum e fraction]Ordered By: Omari Mckinley on 12-05-2022 Hematocrit (Bld) [Volume fraction] 42.7 % 40-54 [facility] - Chemistry and C hemistry - challengeOrdered By: Omari Mckinley on 12-05-2022 ALP [Catalytic activity/Vol] 62 U/L 45-117 [facility] ALT [Catalytic activity/Vol] 21 U/L 16-61 [facility] CO2 [Moles/Vol] 25.0 mmol/L 21.0-32.0 [facility] Globulin (S) [Mass/Vol] 4.2 g/dL 2.2-4.2 [facility] Urea nitrogen/Creatinine [Mass ratio] 15.5 mg/mg 10-20 [facility] - Hematology and Cell countsOrdered By: Omari Mckinley on 12-05-2022 Erythrocyte distribution width (RBC) [Entitic vol] 51.7 fL 35.1-43.9 [facility] Erythrocyte distribution width (RBC) [Ratio] 15.7 % 11.6-14.6 [facility] Immature granulocytes/100 WBC (Bld) 0.300 % 0.0-0.9 [facility] Comment on above: IG% - Immature Granu locytes (promyelocytes, myelocytes and metamyelocytes) > 1% indicates that a LEFT SHIFT is Present. MCH (RBC) [Entitic mass] 26.6 pg 27.0-32.0 [facility] Nucleated RBC/100 WBC (Bld) [Ratio] 0 % 0-5 [facility] MCHC Auto (RBC) [Mass/Vol]Or dered By: Omari Mckinley on 12-05-2022 MCHC (RBC) [Mass/Vol] 30.0 g/dL 32-36 [facility] No Panel InformationOrdered By: Omari Mckniley on 12-05-2022 Estimated GFR (MDRD) Amer 87 mL/min >60 [facility] Comment on above: GFR Calc Estimated GFR (MDRD) Non-Af Amer 72 mL/min >60 [facility] Comment on above: Non- GFR Calc Platelets bldOrdered By: Janette Mckinley on 12-05-2022 Platelets (Bld) [#/Vol] 314 10*3/uL 150-450 [facility] Serum or plasma albumin fern urement (mass/volume)Ordered By: Omari Mckinley on 12-05-2022 Albumin [Mass/Vol] 3.4 g/dL 3.2-5.0 [facility] Serum or plasma albumin/glob ulin mass ratioOrdered By: Omari Mckinley on 12-05-2022 Albumin/Globulin [Mass ratio] 0.8 {ratio} 0.9-2.4 [facility] Serum or plasma calcium fern urement (mass/volume)Ordered By: Omari Mckinley on 12-05-2022 Calcium [Mass/Vol] 9.0 mg/dL 8.5-10.1 [facility] Serum or plasma cholesterol in HDL measurement (mass/volume)Ordered By: Omari Mckinley on 12-05-2022 Cholesterol in HDL [Mass/Vol] 61 mg/dL >40 [facility] Comment on above: The drugs N-Acetylcy steine and Metamizole may falsely depress this assay. Reference Range HDL <40 mg/dL Low HDL Cholesterol HDL >or= 60 mg/dL High HDL Cholesterol Serum or plasma cholesterol in VLDL measurement (mass/volume)Ordered By: Omari Mckinley on 12-05-2022 Cholesterol in VLDL [Mass/Vol] 22 mg/dL 5-40 [facility] Serum or plasma creatinine m easurement (mass/volume)Ordered By: Omari Mckinley on 12-05-2022 Creatinine [Mass/Vol] 1.10 mg/dL 0.70-1.30 [facility] Comment on above: The validity of the calculated GFR & GFRAA in patients over 70 years has not been determined. Clinical correlation is essential. Serum or plasma ferritin med surement (mass/volume)Ordered By: Omari Mckinley on 12-05-2022 Ferritin [Mass/Vol] 10 ng/mL 26-388 [facility] Serum or plasma low density lipoprotein (LDL) cholesterol measurement (mass/volume)Ordered By: Omari Mckinley on 12-05-2022 Cholesterol in LDL [Mass/Vol] 86 mg/dL 0-130 [facility] Serum or plasma urea nitroge n measurement (mass/volume)Ordered By: Omari Mckinley on 12-05-2022 Urea nitrogen [Mass/Vol] 17 mg/dL 7-18 [facility] Thin prep Papanicolaou smear with manual screeningOrdered By: Omari Mckinley on 12-05-2022 Thin prep Papanicolaou smear with manual screening 20 U/L 15-37 [facility] Thin prep Papanicolaou smear with manual screening 5 5-15 [facility] Encounters Encounter Date Encounter Type Care Provider Facility Start: 05-08-2024 End: 05-08-2024 ambulatory [facility] Facility:[facility] Start: 03-13-2024 End: 03-13-2024 ambulatory [facility] Facility:[facility] Start: 12-05-2022 End: 12-05-2022 ambulatory [facility] Work Phone: Start: 12-05-2022 End: 12-05-2022 Patient encounter procedure [facility] Treatment Date Care Activity Detail Author Albumin/Globulin [Ma ss Ratio] in Serum or Plasma by Electrophoresis [facility] Electrophoresis: albumin [facility] Electrophoresis: [id number] [facility] Electrophoresis: [id number] [facility] Electrophoresis: gamma globulin [facility] Globulin measurement [facility] Protein electrophore sis panel - Serum or Plasma [facility] Serum protein electrophoresis [facility] Total globulins measurement [facility] Payers Date Payer Category Payer Self-pay [id number] 2024 Unknown [id number] Unknown [id number] Unknown [id number] Social History Date Type [facility]ail [facility] Work Phone: Start: 1960 Sex Assigned At Male [facility] Evaluation note Note Date & Type Note Facility Evaluation note No assessment information availa ble [facility] Work Phone: Summary Purpose Family History No Family History Records Found Advance Directives No Advanced Directives Records Found Additional Source Comments Goals (unrecognized section and content) Goals may be documented in a n alternate sectionGoals may be documented in an alternate section Care Teams (unrecognized sec tion and content) Team Status: Active Member Role Status Dates Dr. Omari Mckinley MD Family Provider Active Dr. Omari Mckinley MD Primary Care Provider Active Team Status: Inactive Member Role Status Dates Dr. Omari Mckinley MD Primary Care Provider, Attending Jessica zhu Active (unrecognized sect ion and content) No Status Records Found INFORMATION SOURCE (unrecogn ized section and content) DATE CREATED AUTHOR 05/29/2024 [facility] FOR RECORDS PERTAINING TO PATIENTS WHO ARE OR HAVE BEEN ENROLLED IN A CHEMICAL DEPENDENCY/SUBSTANCEABUSE PROGRAM, SOME INFORMATION MAY BE OMITTED. This clinical summary was aggregated from multiple sources. Caution should be exercised in using it in the provision of clinical care. This summary normalizes information from multiple sources, and as a consequence, information in this document may materially change the coding, format and clinical context of patient data. In addition, data may be omitted in some cases. CLINICAL DECISIONS SHOULD BE BASED ON THE PRIMARY CLINICAL RECORDS. [facility] [employer] [facility]. provides no warranty or guarantee of the accuracy or completeness of information in this document.
== END | disposition home or self-care (01) ==
LOC: MFPLAB 08:49
PROVIDERS: PCP Family Medicine; Referring Provider Family Medicine; Visit Provider Family Medicine
DX: E61.1 Iron deficiency (principal); R63.4 Abnormal weight loss
CPT/HCPCS: 36415; 80053; 82607; 82728; 82746; 84443

== ENCOUNTER → 2025-02-02 | Outpatient (CLI) | payer BC, SELFPAY ==
[2025-02-02 15:16] LABS: Hematocrit 41.7 % (40-54); Hemoglobin 13.8 g/dL (13.0-16.5); Immature Granulocytes Count 0.010 X10^3/uL (0.0-0.0); Mean Corp Hgb Conc 33.1 g/dL (32-36); Mean Corpuscular Volume 89.9 fL (80-94); Mean Platelet Vol. 12.6 fl (6.2-12.0); NRBC Flagged by Analyzer 0 % (0-5); Platelet Count 260 K/mm3 (150-450); RBC Distribution Width CV 13.5 % (11.6-14.6); RBC Distribution Width SD 44.6 fl (35.1-43.9); Red Blood Count 4.64 M/mm3 (4.6-6.2); White Blood Count 6.5 K/mm3 (4.4-11.0)
[2025-02-02 15:46] LABS: AST(SGOT) 25 U/L (<=37); Alanine Aminotransfer ALT/SGPT 16 U/L (<=46); Albumin, Serum 4.4 g/dL (3.4-4.8); Alkaline Phosphatase 52 U/L (40-129); Anion Gap 10 (5-15); BUN 12 mg/dL (4-19); BUN/Creat Ratio 13.0 RATIO (10-20); Calcium,Total 9.6 mg/dL (7.6-11.0); Carbon Dioxide 25.5 mmol/L (21.0-32.0); Chloride 101 mmol/L (98-108); Ferritin 81 ng/mL (37-417); Globulin 3.3 g/dL (2.2-4.2); Glucose 81 mg/dL (70-99); Lipase 26 U/L (13-75); Potassium 4.5 mmol/L (3.3-5.1); Vitamin B12 618 pg/mL (180-914)
[2025-02-02 16:14] LABS: FOLATES,SERUM (FOLIC ACID) 34.40 ng/mL (4.60-34.80)
== END | disposition home or self-care (01) ==
LOC: MFPLAB 11:34
PROVIDERS: PCP Family Medicine; Visit Provider Family Medicine
DX: E61.1 Iron deficiency (principal); R63.4 Abnormal weight loss
CPT/HCPCS: 36415; 80053; 82607; 82728; 82746; 83690; 85025